=== PATIENT | female | born 1995 | race Caucasian/White ===

== ENCOUNTER 2017-12-16 09:50 | Emergency (ER) | payer SELFPAY ==
[2017-12-16 09:56] VITALS: BP 111/81
--- NOTE | 2017-12-16 10:41 | EDPHY ---
General - History Smoking Status: Light smoker Time Seen by Provider: 12/16/17 10:33 Narrative: CHIEF COMPLAINT: "My tonsils are enlarged" HISTORY OF PRESENT ILLNESS: Patient presents by private vehicle with complaints of enlarged tonsils. She states that they have been this way for 2 weeks. She was initially evaluated 3 days after the onset at an urgent care where they diagnosed her with tonsillitis. She was prescribed penicillin and has completed this as of yesterday. She was told to come here if she had no improvement of the tonsillar enlargement after completion of the medication. She says that this is the case, but she has no complaints of pain. No sore throat, no difficulty breathing or swelling. No chest pain. No cough. No runny nose or sinus congestion. She has no complaints of any kind other than the reportedly enlarged tonsils. REVIEW OF SYSTEMS: 10 systems were reviewed and negative with the exception of the elements mentioned in the history of present illness. PCP: None. Urgent Care when needed. SPECIALISTS: None PAST MEDICAL HISTORY: Denies any medical diagnoses PAST SURGICAL HISTORY: No surgical history SOCIAL HISTORY: Nonsmoker. Originally from [place]. Moved here 3 months ago. FAMILY HISTORY: Noncontributory EXAMINATION: General Appearance: Alert, no distress Head: normocephalic, atraumatic Eyes: Pupils equal and round, no conjunctival pallor or injection ENT, Mouth: Mucous membranes moist. Uvula is midline. The airway is widely patent. There is no erythema or edema of the posterior pharynx. Tonsils are symmetric and without any large min or exudate. There is no trismus. No abnormality of the floor of mouth. There are no desquamating lesions or vesicles of the mouth. Neck: Normal inspection, supple, non-tender. No meningismus. No cervical lymphadenopathy. No supraclavicular but not 3. Respiratory: No retractions or distress. Skin: Warm and dry, no rash. No desquamation. Extremities: Nontender, no pedal edema DIFFERENTIAL DIAGNOSES: Including but not limited to tonsillitis, pharyngitis, Jeremías Percy syndrome, Jasiel's angina, or mononucleosis MDM: 10:30 a.m. Normal examination with patient complain of enlarged tonsils. I do not appreciate any tonsillitis, pharyngitis, peritonsillar abscess or abnormality of the floor of the mouth. There is no desquamating lesions. No vesicles or rash. Patient has the sensation of enlarged tonsils, thus I will refer her to Ear Nose and Throat physician. We discussed ED precautions. I have answered all her questions. She is well-appearing and discharged home stable condition. SUPERVISION: This patient was independently evaluated without direct involvement of or examination by the attending physician. CONSULTATION: None (John Cruz) Discussion: The patient was evaluated and managed by the Physician Polysomnographic Technician. My co- signature indicates that I have reviewed this chart and I agree with the findings and plan of care as documented. I am the secondary supervising physician. (Karen Cabral) - Objective Vital Signs: Initial Vital Signs Temperature (C) 36.5 C 12/16/17 09:53 Heart Rate 82 12/16/17 09:53 Respiratory Rate 18 12/16/17 09:53 Blood Pressure 111/81 H 12/16/17 09:53 O2 Sat (%) 95 12/16/17 09:53 O2 Delivery Mode Room Air Allergies/Adverse Reactions: No Known Allergies Allergy (Unverified 12/16/17 09:56) Home Medications: Medication Instructions Recorded NK [No Known Home Meds] 12/16/17 Departure - Departure Disposition: Home, Routine, Self-Care Clinical Impression: Normal physical exam Condition: Good Instructions: Normal Exam (ED) Additional Instructions: 1. Contact Ear Nose and Throat physician for outpatient care 2. Return to emergency department for any asymmetry of the tonsils, difficulty breathing or swallowing, difficulty opening the mouth, fever or sore throat Referrals: Richard Gonzalez MD [Medical Doctor] - As per Instructions Stand Alone Forms: Work Excuse
== END 2017-12-16 10:51 | disposition home or self-care (01) ==
DX: J35.1 Hypertrophy of tonsils (principal); F17.200 Nicotine dependence, unspecified, uncomplicated